=== PATIENT | female | born 1970 | race Caucasian/White ===

== ENCOUNTER 2023-09-30 10:45 | Emergency (ER) | payer MEDICAID ==
[~2023-09-30] VITALS: Ht 165.1 cm; Wt 99.8 kg
[2023-09-30] MEDS ORDERED: MAGN200T4 PO (11:02)
[2023-09-30] MEDS ORDERED: LOSA50TA39 PO (11:02)
[2023-09-30] MEDS ORDERED: GABA-532 PO (11:02)
[2023-09-30] MEDS ORDERED: RIME75TA PO (11:02)
[2023-09-30] MEDS ORDERED: URSO250T3 PO (11:02)
[2023-09-30] MEDS ORDERED: ESCI10TA PO (11:02)
[2023-09-30] MEDS ORDERED: SECUKINUMAB (11:02)
[2023-09-30] MEDS ORDERED: ASPI81TA31 PO (11:02)
[2023-09-30] MEDS ORDERED: TRAZ-257 PO (11:02)
[2023-09-30] MEDS ORDERED: DONE5TAB34 PO (11:02)
[2023-09-30] MEDS ORDERED: METO-357 PO (11:02)
[2023-09-30] MEDS ORDERED: OMEP20TA5 PO (11:02)
[2023-09-30 11:39] LABS: CARBON DIOXIDE 26 mmol/L (21-32); CHLORIDE 107 mmol/L (98-107); CREATININE 0.8 mg/dL (0.6-1.3); GLUCOSE 114 mg/dL (74-106); POTASSIUM 3.7 mmol/L (3.5-5.1); SODIUM SERUM 141 mmol/L (136-145); UREA NITROGEN, BLOOD 19 mg/dL (7-18)
[2023-09-30 11:40] LABS: BASOPHILS # (AUTO) 0.1 K/UL (0.0-0.2); BASOPHILS % (AUTO) 0.9 % (0.0-2.0); EOSINOPHILS # (AUTO) 0.4 K/uL (0.0-0.7); EOSINOPHILS % (AUTO) 6.1 % (0.0-7.0); HEMATOCRIT 40.8 % (31.2-41.9); HEMOGLOBIN 13.8 g/dL (10.9-14.3); LYMPHOCYTES # (AUTO) 2.2 K/uL (0.8-4.8); LYMPHOCYTES % (AUTO) 37.1 % (20.5-51.5); MEAN CORPUSCULAR HEMOGLOBIN 28.2 uug (24.7-32.8); MEAN CORPUSCULAR HGB CONC 34 g/dL (32.3-35.6); MEAN CORPUSCULAR VOLUME 83.6 fL (75.5-95.3); MONOCYTES # (AUTO) 0.4 K/uL (0.1-1.30); NEUTROPHILS # (AUTO) 2.9 K/uL (1.8-8.9); NEUTROPHILS % (AUTO) 48.9 % (38.5-71.5); PLATELET COUNT (AUTO) 266 K/uL (179-408); RED BLOOD CELL COUNT(AUTO) 4.88 MIL/uL (3.63-4.92)
[2023-09-30 11:57] LABS: ALANINE AMINOTRANSFERASE 28 U/L (14-59); ALBUMIN 3.4 g/dL (3.4-5.0); ALKALINE PHOSPHATASE 83 U/L (50-136); ASPARTATE AMINOTRANSFERASE 14 U/L (15-37); BILIRUBIN,TOTAL 0.5 mg/dL (0.2-1.0); CALCIUM 8.8 mg/dL (8.5-10.1); NT-PRO BNP 159 pg/mL (0-125); TOTAL PROTEIN, SERUM 7.5 g/dL (6.4-8.2)
[2023-09-30 12:06] LABS: BILIRUBIN,DIRECT < 0.1 mg/dL (0.0-0.2)
[2023-09-30] MEDS ORDERED: ACETAMINOPHEN 325 MG TABLET PO PRN (13:30)
[2023-09-30] MEDS ORDERED: METOPROLOL SUCCINATE XL 50 MG TAB.SR.24H PO ONE (13:35)
[2023-09-30] MEDS ORDERED: ASPIRIN 81 MG TAB.CHEW ONE (13:35)
[2023-09-30] MEDS: ASPIRIN 81 MG TAB.CHEW PO SCH (13:36)
[2023-09-30 13:37] VITALS: BP 159/100
[2023-09-30] MEDS: METOPROLOL SUCCINATE XL 50 MG TAB.SR.24H PO SCH (13:37)
[2023-09-30 17:30] VITALS: O2SAT 97
[2023-09-30] MEDS: TRAZODONE 100 MG TABLET PO SCH (18:00)
[2023-09-30] MEDS ORDERED: GABAPENTIN 100 MG CAPSULE PO SCH (21:00)
[2023-10-01] MEDS ORDERED: LOSARTAN POTASSIUM 50 MG TABLET PO SCH (09:00)
[2023-10-01] MEDS ORDERED: DONEPEZIL 5 MG TABLET PO SCH (09:00)
[2023-10-01] MEDS ORDERED: ESCITALOPRAM OXALATE 10 MG TABLET PO SCH (09:00)
== END 2023-09-30 17:33 | disposition short-term general hospital (02) ==
LOC: ER 10:49
DX: I20.9 Angina pectoris, unspecified (principal); R07.89 Other chest pain; Z79.82 Long term (current) use of aspirin; Z79.899 Other long term (current) drug therapy; Z20.822 Contact with and (suspected) exposure to COVID-19; Z60.2 Problems related to living alone; Z88.1 Allergy status to other antibiotic agents
CPT/HCPCS: 36415; 71045; 84484; 85025; 85730; 93005; A4606; A4663; J7040